=== PATIENT | female | born 1970 | race Caucasian/White ===

== ENCOUNTER 2019-06-05 14:43 | Emergency (ER) | payer MEDICARE, MEDICAID ==
[2019-06-05 14:52] VITALS: BP 141/96; PULSE 93
--- NOTE | 2019-06-05 15:23 | EDM.PDOC ---
ED HPI GENERAL MEDICAL PROBLEM - General Chief Complaint: General Stated Complaint: ER Time Seen by Provider: 06/05/19 14:43 Source of Information: Reports: Patient, Family History Limitations: Reports: Altered Mental Status - History of Present Illness INITIAL COMMENTS - FREE TEXT/NARRATIVE: Pt. presents to ER via private vehicle. Pt. was being driven to the ER at [facility] by her daughter due to complaints of severe chest pain, agitation , hemoptysis, fever and chills. Pt. has a history of lung cancer and hand recently been undergoing chemotherapy. Pt. daughter states that the patient was minimally responsive in the back seat of the car. Family subsequently diverted to our facility. Pt. appeared to be unresponsive and had to be lifted off the garage floor as she slumped to the floor. Pt. states that she has been experiencing the chest pain, tremors, and hemoptysis for 2 weeks. Onset: Today Onset Date: 06/05/19 Location: Reports: Chest, Generalized Associated Symptoms: Reports: Chest Pain Throat Pain Score (Numeric/FACES): 10 - Related Data Allergies Allergy/AdvReac Type Severity Reaction Status Date / Time No Known Allergies Allergy Verified 07/11/17 08:09 Home Meds: Home Meds FLUoxetine [PROzac] 20 mg PO DAILY 07/11/17 [History] Omeprazole/Sodium Bicarbonate [Omeprazole-Bicarb 20-1,100 Cap] 1 each PO DAILY 07/11/17 [History] Past Medical History Gastrointestinal History: Reports: GERD Psychiatric History: Reports: Depression - Past Surgical History GI Surgical History: Reports: Other (See Below) Other GI Surgeries/Procedures: GASTRIC BYPASS Social & Family History - Family History Family Medical History: Noncontributory ED ROS GENERAL - Review of Systems Review Of Systems: See Below Constitutional: Reports: Chills HEENT: Reports: No Symptoms Respiratory: Reports: Pleuritic Chest Pain Cardiovascular: Reports: No Symptoms Endocrine: Reports: No Symptoms GI/Abdominal: Reports: No Symptoms : Reports: No Symptoms Musculoskeletal: Reports: No Symptoms Skin: Reports: No Symptoms Neurological: Reports: Confusion, Tremors, Trouble Speaking, Difficulty Walking , Weakness, Change in Speech (Stuttering), Gait Disturbance Psychiatric: Reports: No Symptoms Hematologic/Lymphatic: Reports: No Symptoms Immunologic: Reports: No Symptoms ED EXAM, GENERAL - Physical Exam Exam: See Below Exam Limited By: No Limitations General Appearance: Alert, WD/WN, No Apparent Distress Eye Exam: Bilateral Eye: EOMI, Normal Fundi, Normal Inspection, PERRL Throat/Mouth: Normal Inspection, Normal Lips, Normal Oropharynx, No Airway Compromise, Other (edentulous upper) Head: Atraumatic, Normocephalic Neck: Normal Inspection Respiratory/Chest: No Respiratory Distress, No Accessory Muscle Use, Other ( Chest tender to palpation and deep breathing. Crackles in R lower lung base.) Cardiovascular: Normal Peripheral Pulses, Regular Rate, Rhythm, No Edema, No Gallop, No JVD Peripheral Pulses: 4+: Radial (R) GI/Abdominal: Soft, Non-Tender, No Organomegaly, No Distention (Female) Exam: Deferred Rectal (Female) Exam: Deferred Back Exam: Normal Inspection, Full Range of Motion Extremities: Normal Inspection, Normal Range of Motion, Non-Tender, No Pedal Edema, Normal Capillary Refill Neurological: Alert, Oriented, CN II-XII Intact, Normal Cognition, Normal Gait, No Motor/Sensory Deficits, Other (By the time she was examined, she was alert, following commands, and was able to recall her PMH.) Skin Exam: Warm, Dry, Intact, Normal Color, No Rash Course - Vital Signs Last Recorded V/S: Last Vital Signs Temp 37.4 C 06/05/19 14:43 Pulse 93 06/05/19 14:43 Resp 20 06/05/19 14:43 BP 141/96 H 06/05/19 14:43 Pulse Ox 99 06/05/19 14:43 - Orders/Labs/Meds Orders: Active Orders 24 hr Category Date Time Status EKG Documentation Completion [RC] STAT Care 06/05/19 14:52 Active Implanted Port Access [RC] DAILY Care 06/05/19 14:55 Active CBC WITH AUTO DIFF [HEME] Stat Lab 06/05/19 14:52 Ordered COMPREHENSIVE METABOLIC PN,CMP [CHEM] Stat Lab 06/05/19 14:52 Ordered CRP [C-REACTIVE PROTEIN] [CHEM] Stat Lab 06/05/19 14:52 Ordered CULTURE BLOOD [BC] Stat Lab 06/05/19 14:56 Ordered CULTURE BLOOD [BC] Stat Lab 06/05/19 14:56 Ordered DRUG SCREEN, URINE [URCHEM] Stat Lab 06/05/19 14:54 Ordered INR,PT,PROTHROMBIN TIME [COAG] Stat Lab 06/05/19 14:52 Ordered LACTIC ACID [CHEM] Stat Lab 06/05/19 14:52 Ordered MAGNESIUM [CHEM] Stat Lab 06/05/19 14:52 Ordered PHOSPHORUS [CHEM] Stat Lab 06/05/19 14:52 Ordered PRO B-TYPE NATRIUR PEPT,BNPPRO [CHEM] Stat Lab 06/05/19 14:52 Ordered TSH ULTRASENSITIVE [CHEM] Stat Lab 06/05/19 14:52 Ordered UA W/MICROSCOPIC [URIN] Stat Lab 06/05/19 14:53 Ordered Blood Culture x2 Reflex Set [OM.PC] Stat Oth 06/05/19 14:56 Ordered - Radiology Interpretation Free Text/Narrative:: Labs including CBC, CMP, Trop I, EKG, chest x-ray, CT brain, Blood cultures x2, lactate, UDS, UA were ordered. Prior to this, pt. stated that she did not want to have a workup done and requested IV pain medications so she could "get to [place]". Pt. was informed that since she is a patient in the ER, she would need to be worked up and likely transferred if necessary, if it was medically necessary. She stated that she would stay. Once lab and x-ray arrived, pt. refused any studies, again requesting pain medication. Pt. subsequently refused. She refused to sign AMA form. Pt. was quite upset on leaving, but was alert, walking without difficulty, raising her voice, and did not appear to be in extremis. Departure - Departure Time of Disposition: 15:38 Disposition: Against Medical Advice 07 Clinical Impression: Chest pain, Altered mental status - Discharge Information - My Orders Last 24 Hours: My Active Orders 06/05/19 14:52 EKG Documentation Completion [RC] STAT CBC WITH AUTO DIFF [HEME] Stat COMPREHENSIVE METABOLIC PN,CMP [CHEM] Stat CRP [C-REACTIVE PROTEIN] [CHEM] Stat INR,PT,PROTHROMBIN TIME [COAG] Stat LACTIC ACID [CHEM] Stat MAGNESIUM [CHEM] Stat PHOSPHORUS [CHEM] Stat PRO B-TYPE NATRIUR PEPT,BNPPRO [CHEM] Stat TSH ULTRASENSITIVE [CHEM] Stat 06/05/19 14:53 UA W/MICROSCOPIC [URIN] Stat 06/05/19 14:54 DRUG SCREEN, URINE [URCHEM] Stat 06/05/19 14:55 Implanted Port Access [RC] DAILY 06/05/19 14:56 CULTURE BLOOD [BC] Stat CULTURE BLOOD [BC] Stat Blood Culture x2 Reflex Set [OM.PC] Stat - Assessment/Plan Last 24 Hours: My Active Orders 06/05/19 14:52 EKG Documentation Completion [RC] STAT CBC WITH AUTO DIFF [HEME] Stat COMPREHENSIVE METABOLIC PN,CMP [CHEM] Stat CRP [C-REACTIVE PROTEIN] [CHEM] Stat INR,PT,PROTHROMBIN TIME [COAG] Stat LACTIC ACID [CHEM] Stat MAGNESIUM [CHEM] Stat PHOSPHORUS [CHEM] Stat PRO B-TYPE NATRIUR PEPT,BNPPRO [CHEM] Stat TSH ULTRASENSITIVE [CHEM] Stat 06/05/19 14:53 UA W/MICROSCOPIC [URIN] Stat 06/05/19 14:54 DRUG SCREEN, URINE [URCHEM] Stat 06/05/19 14:55 Implanted Port Access [RC] DAILY 06/05/19 14:56 CULTURE BLOOD [BC] Stat CULTURE BLOOD [BC] Stat Blood Culture x2 Reflex Set [OM.PC] Stat Plan: Pt. will be driven by her family. They were informed that they can return at any time if they wish, and were urged to seek medication attention ENRIQUE given the patient's symptoms. In reviewing her chart, it appears that she had a similar encounter at [facility] yesterday.
== END 2019-06-05 14:58 | disposition left against medical advice (07) ==
LOC: VM.ED 14:43
DX: R41.82 Altered mental status, unspecified (principal); R07.9 Chest pain, unspecified; C34.90 Malignant neoplasm of unspecified part of unspecified bronchus or lung; F32.9 Major depressive disorder, single episode, unspecified; K21.9 Gastro-esophageal reflux disease without esophagitis; Z79.899 Other long term (current) drug therapy
CPT/HCPCS: 99284; 99284-GF